=== PATIENT | female | born 1985 | race American Indian/Alaskan Native ===

== ENCOUNTER 2017-10-11 11:00 | Outpatient (CLI) | payer MEDICAID | END 2017-10-11 11:01 | disposition home or self-care (01) | LOC: SLR 11:00 | PROVIDERS: ATTEND Specialist | DX: G47.30 Sleep apnea, unspecified (principal); R40.0 Somnolence; I10 Essential (primary) hypertension | CPT/HCPCS: G0399 ==

== ENCOUNTER 2018-01-05 16:08 | Emergency (ER) | payer SELFPAY ==
[2018-01-05 16:24] VITALS: BP 166/97
--- NOTE | 2018-01-05 18:45 | XRay Report ---
FINAL REPORT PROCEDURE: Abdominal series. TECHNIQUE: Supine and upright views of the abdomen, PA chest. HISTORY: Epigastric abdominal pain, rule out free air. COMPARISON: No prior studies are available for comparison. FINDINGS: The heart and mediastinum appear normal. The lungs are clear and well expanded. There are no pleural effusions. The soft tissues are unremarkable. There is no evidence of pneumoperitoneum. The bowel gas pattern is normal. The regional skeleton appears intact. There is an IUD in the pelvis. A laparoscopic band is noted in the left upper quadrant. IMPRESSION: No evidence of acute disease.
--- NOTE | 2018-01-05 18:59 | Emergency Department Report ---
ED Abdominal Pain HPI - General Chief Complaint: Abdominal Pain Stated Complaint: CHOKING/COUGH Time Seen by Provider: 01/05/18 16:30 Source: patient Mode of arrival: Ambulatory Limitations: No Limitations - History of Present Illness Initial Comments: Patient is a 32-year-old Turk[place] female who is presenting with a cough for approximately 6 months as well as some epigastric discomfort has been going on for approximately a year. Patient has a LAP-BAND and states she's in so much discomfort that she wants it taken out. She called Dr. Ortiz's office today and was sent to the emergency department because of distress and to see if there was something emergent going on. Patient denies any fevers chills nausea vomiting. Patient does get a strange sensation in the back of the throat with a nasty taste occasionally and is sometimes chokes and coughs uncontrollably. - Related Data Previous Rx's Medication Instructions Recorded Last Taken Type Labetalol [Normodyne TAB] 300 mg PO 0800,1400,2000 #60 tablet 12/30/14 Unknown Rx NIFEdipine XL [Procardia Xl] 30 mg PO Q12HR #30 tablet 12/30/14 Unknown Rx Sucralfate [Carafate] 1 gm PO Q6HR 30 Days udc 01/05/18 Unknown Rx Allergies Allergy/AdvReac Type Severity Reaction Status Date / Time No Known Allergies Allergy Verified 01/05/18 16:21 ED Review of Systems ROS: Stated complaint: CHOKING/COUGH Other details as noted in HPI Comment: All other systems reviewed and negative ED Past Medical Hx - Past Medical History Hx Hypertension: Yes Additional medical history: pre-eclampsia - Surgical History Additional Surgical History: lap band. - Social History Smoking Status: Never Smoker Substance Use Type: None - Medications Home Medications: Home Medications Medication Instructions Recorded Confirmed Last Taken Type Labetalol [Normodyne TAB] 300 mg PO 0800,1400,2000 #60 tablet 12/30/14 Unknown Rx NIFEdipine XL [Procardia Xl] 30 mg PO Q12HR #30 tablet 12/30/14 Unknown Rx Sucralfate [Carafate] 1 gm PO Q6HR 30 Days udc 01/05/18 Unknown Rx ED Physical Exam - General Limitations: No Limitations General appearance: alert, in no apparent distress - Head Head exam: Present: atraumatic, normocephalic - Eye Eye exam: Present: normal appearance - ENT ENT exam: Present: mucous membranes moist - Neck Neck exam: Present: normal inspection - Respiratory Respiratory exam: Present: normal lung sounds bilaterally. Absent: respiratory distress - Cardiovascular Cardiovascular Exam: Present: regular rate, normal rhythm. Absent: systolic murmur, diastolic murmur, rubs, gallop - GI/Abdominal GI/Abdominal exam: Present: soft, normal bowel sounds - Extremities Exam Extremities exam: Present: normal inspection - Back Exam Back exam: Present: normal inspection - Neurological Exam Neurological exam: Present: alert, oriented X3 - Psychiatric Psychiatric exam: Present: normal affect, normal mood - Skin Skin exam: Present: warm, dry, intact, normal color. Absent: rash ED Course Vital Signs 01/05/18 16:21 Temperature 98.6 F Pulse Rate 99 H Respiratory 18 Rate Blood Pressure 166/97 O2 Sat by Pulse 100 Oximetry ED Medical Decision Making - Medical Decision Making Patient is a 32-year-old black female who is presenting with chronic cough secondary to most likely GERD. Patient's has a LAP-BAND patient is worried that her LAP-BAND has eroded through her stomach. To relieve the patient's fears x-ray was done here in emergency department that shows that she has abnormal nondestructive bowel gas pattern there is no free air consistent with stomach rupture there is no dysfunction in the position of the LAP-BAND. Patient will be discharged home at this time. Patient will be started on Carafate and see if this will help with her symptoms. Critical care attestation.: If time is entered above; I have spent that time in minutes in the direct care of this critically ill patient, excluding procedure time. ED Disposition Clinical Impression: Chronic cough GERD (gastroesophageal reflux disease) Qualifiers: Esophagitis presence: without esophagitis Qualified Code(s): K21.9 - Gastro- esophageal reflux disease without esophagitis Disposition: - TO HOME OR SELFCARE Is pt being admited?: No Does the pt Need Aspirin: No Condition: Stable Instructions: Diet for Ulcers and Gastritis (ED), Gastroesophageal Reflux Disease (ED) Prescriptions: Sucralfate [Carafate] 1 gm PO Q6HR 30 Days ud Referrals: TRINIDAD ORTIZ MD [Staff Physician] - 3-5 Days
== END 2018-01-05 19:01 | disposition home or self-care (01) ==
LOC: ED 16:08
DX: K21.9 Gastro-esophageal reflux disease without esophagitis (principal); R05 Cough; I10 Essential (primary) hypertension
CPT/HCPCS: 74022; 99283

== ENCOUNTER 2018-03-21 12:15 | Emergency (ER) | payer MEDICAID ==
[2018-03-21 13:37] VITALS: BP 157/105
== END 2018-03-21 19:00 | disposition left against medical advice (07) ==
LOC: ED 12:15
DX: R51 Headache (principal); Z53.21 Procedure and treatment not carried out due to patient leaving prior to being seen by health care provider